=== PATIENT | male | born 1980 | race African-American/Black ===

== ENCOUNTER 2016-10-28 18:15 | Emergency (ER) | payer OTHER ==
[~2016-10-28] VITALS: Ht 170.2 cm; Wt 64.4 kg
[~2016-10-28 18:15] MED LIST: CLONIDINE; FLEXERIL; KEPPRA500 M2 PO; METHADONE PO; PHENERGAN
== END 2016-10-28 19:41 | disposition left against medical advice (07) ==
LOC: CED 18:15
DX: Z53.21 Procedure and treatment not carried out due to patient leaving prior to being seen by health care provider (principal)